=== PATIENT | female | born 1975 ===

== ENCOUNTER 2019-11-29 20:10 | Day surgery (SDC) | payer SELFPAY ==
[~2019-11-29] VITALS: Ht 175.3 cm; Wt 95.0 kg
[2019-11-29] MEDS ORDERED: PRENATAL PO (20:16)
[2019-11-29 20:43] LABS: BASOPHILS 0.1 % (0-2); EOSINOPHILS 0.7 % (0-7); HEMATOCRIT 35.3 % (36.0-48.0); HEMOGLOBIN 11.9 g/dL (12-16); IMMATURE GRANULOCYTES 0.3 % (0-5); LYMPHOCYTES 13.7 % (15-50); MCH 28.3 pg (26.0-34.0); MCHC 33.7 g/dL (31.0-37.0); MEAN PLATELET VOLUME 9.2 fL (7.4-10.4); MONOCYTES 4.4 % (2-11); NEUTROPHILS 80.8 % (40-80); PLATELET COUNT 336 10x3/uL (130-400); RDW 14.9 % (11.5-14.5); WBC 15.2 10x3/uL (4.8-10.8)
[2019-11-29 20:56] LABS: CALC OSMOLALITY 283 mosm/kg (275-300); CALCIUM 9.1 mg/dL (8.5-10.1); CHLORIDE - SERUM 107 mmol/L (98-107); CREATININE - SERUM 0.7 mg/dL (0.6-1.3); GLUCOSE 136 mg/dL (74-106); POTASSIUM - SERUM 3.8 mmol/L (3.5-5.1); SODIUM 141 mmol/L (136-145); UREA NITROGEN 16 mg/dL (7-18); eGFR NON AFRICAN AMERICAN > 90 mL/min (90-120)
[2019-11-29 21:24] LABS: ALBUMIN 3.2 g/dL (3.4-5.0); ALKALINE PHOSPHATASE 73 U/L (30-120); ALT (SGPT) 21 U/L (10-68); BILIRUBIN - TOTAL 0.26 mg/dL (0.2-1.3); HCG - QUANTITATIVE (MATERNAL) 3526 mIU/mL; PROTEIN - SERUM 6.4 g/dL (6.4-8.2)
--- NOTE | 2019-11-29 22:52 | NUR ---
PT STABLE AND RECOVERED. AWAKE, RESTING QUIETLY WANTING TO SEE HER . WE ARE CURRENTLY WAITING ON SOLAR DEVELOPMENT ENGINEER TO GIVE US A ROOM NUMBER. WILL TRANSFER WHEN ROOM IS AVAILABLE.
--- NOTE | 2019-11-29 23:30 | NUR ---
RECEIVED FROM RECOVERY ROOM. ALERT ORIENTED. NO COMPALITNS AT PRESENT TIME. IV TO LEFT HAND INTACT WITHOUT REDNESS OR EDEMA. ORIENTED TO ROOM. CL IN REACH. AT BEDSIDE.
[2019-11-29 23:36] VITALS: BP 91/50
[2019-11-30] VITALS: BP 91/50
[2019-11-30 00:13] VITALS: BP 84/46; Ht 175.3 cm; Wt 95.0 kg
--- NOTE | 2019-11-30 00:20 | NUR ---
ADMISSION ASSESSMENT COMPLETE. PT STATES BLEEDING SLOWING DOWN. BP LOW...WILL START IV FLUIDS PER NEW ORDER.
[2019-11-30 04:00] VITALS: BP 82/45
[2019-11-30 06:48] LABS: BASOPHILS 0.2 % (0-2); EOSINOPHILS 0.2 % (0-7); HEMATOCRIT 32.5 % (36.0-48.0); HEMOGLOBIN 10.8 g/dL (12-16); IMMATURE GRANULOCYTES 0.2 % (0-5); LYMPHOCYTES 13.4 % (15-50); MCHC 33.2 g/dL (31.0-37.0); MCV 84.2 fL (80.0-100.0); MEAN PLATELET VOLUME 9.4 fL (7.4-10.4); RBC 3.86 10x6/uL (4.00-5.40); RDW 14.8 % (11.5-14.5); WBC 12.7 10x3/uL (4.8-10.8)
[2019-11-30 07:01] LABS: PLATELET COUNT 249 10x3/uL (130-400)
[2019-11-30 08:40] VITALS: BP 110/49
--- NOTE | 2019-11-30 09:30 | NUR ---
IV REMOVED AT DR REQUEST, TIP INTACT, JEROME WELL
--- NOTE | 2019-11-30 10:10 | OP ---
PATIENT NAME: ORLANDO GÓMEZ MEDICAL RECORD: [id number] LOCATION:[id number] ADMISSION DATE: SURGEON: JOSE CARLOS BUNCH MD DATE OF OPERATION: 11/29/2019 PREOPERATIVE DIAGNOSIS: Inevitable . POSTOPERATIVE DIAGNOSIS: Inevitable . PROCEDURE: Suction D and E with curettage. SURGEON: Jose Carlos Bunch MD PROFESSIONAL ADVISOR: Vivian San. ANESTHESIA: General. FINDINGS: Cervical os is open with products of conception at the lower segment and os. Moderate to copious amounts of products of conception removed. Vaginal vault was unremarkable. SPECIMEN REMOVED: Products of conception. SPECIMEN DISPOSITION: Pathology. ESTIMATED BLOOD LOSS: Less than or equal to 50 cc during this procedure; greater than 100 in vaginal vault. FLUIDS: 1. 500 normal saline. 2. One unit of packed red blood cells URINE OUTPUT: Quantity sufficient cath. COMPLICATIONS: None. DRAINS: None. INDICATIONS: The patient is a 44-year-old female transferred from [place], [place] this evening who presented to the Emergency Room, tachycardic and pale with heavy vaginal bleeding. The patient was immediately consented for urgent D and E after evaluation reveals open os and continued heavy bleeding. DESCRIPTION OF PROCEDURE: After informed consent was assured, the patient was taken to the operating room where anesthetic was obtained. The patient was not placed in Yellofin stirrups and prepped and draped in the usual sterile fashion. Speculum was introduced in the vagina and the anterior lip of the cervix grasped with a single tooth tenaculum. The cervix is dilated. Using ring forceps, a clot and product of conception is removed from the os. Suction curette is now passed gently to the fundus and the suction activated. Products of conception and debris was removed in several passes. Sharp curettage was now performed with a #3 curette until good cry was obtained. A single pass with the suction device were removed, all remaining clot and debris. Sponge, lap, and needle counts correct times 2 and the patient was awakened and went to the recovery room in stable condition. OPERATIVE REPORT [id number] ORLANDO GÓMEZ TRANSINT:[id number] Voice Confirmation ID: [id number] DOCUMENT ID: [id number] JOSE CARLOS BUNCH MD at 1010 CC: [id number] DICTATION DATE: 11/29/192220 SENIOR PRODUCTION SUPERVISOR: 11/30/[address] [facility] [address] [place], [facility]
--- NOTE | 2019-11-30 10:16 | NUR ---
resting in bed, no distress noted, iv infusing per left hand, cont to monitor pain and bleeding
[2019-11-30] MEDS ORDERED: FERROUS SULFAT325 MG PO (11:12)
--- NOTE | 2019-11-30 11:45 | NUR ---
REVIEWED D/C ORDERS WITH PT AND , VOICED NO CONCERNS, TAKEN FROM HOSPITAL PER W/C
== END 2019-11-30 11:50 | disposition home or self-care (01) ==
LOC: D.ER 20:10 → D.MS 21:35 → D.OPS 21:35 → D.ER 21:39 → D.OPS 11-30 11:50
PROVIDERS: Family Medicine; ATTEND Obstetrics & Gynecology
DX: O03.9 Complete or unspecified spontaneous abortion without complication (principal)